=== PATIENT | female | born 1990 | race Caucasian/White ===

== ENCOUNTER 2018-09-01 17:16 | Inpatient (IN) | payer BC, OTHER ==
[2018-09-01 18:21] VITALS: BMI 27.2
[2018-09-01] MEDS: Betamet Acet/Betamet Na Ph 30 MG/5 ML VIAL ONE (18:23)
[2018-09-02] MEDS: Betamet Acet/Betamet Na Ph 30 MG/5 ML VIAL ONE (06:24)
[2018-09-02 15:08] LABS: Hemoglobin 12.1 g/dL (12.0-16.0); Mean Corpuscular Hemoglobin 33.3 pg (27.0-31.0); Mean Corpuscular Volume 98.1 fL (78.0-98.0); Mean Platelet Volume 7.4 fL (7.4-10.4); Platelet Count 244 thou/uL (130-400); Red Blood Cell (RBC) Count 3.62 mill/uL (4.20-5.40); White Blood Cell (WBC) Count 17.6 thou/uL (4.8-10.8)
[2018-09-02 15:50] LABS: HBSAg Index 0.27 S/CO (0-0.99); Hep B Surf Ag Non-Reactive S/CO (NonReactive)
[2018-09-02 15:55] LABS: Syphilis Antibody Nonreactive (Nonreactive); Syphilis Antibody Index 0.04 S/CO (<1.00 Non-Reactive)
[2018-09-02] MEDS ORDERED: MORPHINE 5 MG/10 ML PF VIAL ONE (16:15)
[2018-09-02] MEDS ORDERED: Metoclopramide HCl 10 MG/2 ML VIAL ONE (16:16)
[2018-09-02] MEDS ORDERED: Oxytocin 10 UNITS/ML VIAL ONE (16:16)
[2018-09-02] MEDS ORDERED: Ondansetron PF 4 MG/2 ML Vial ONE (16:16)
[2018-09-02] MEDS ORDERED: PHENYLEPHRINE-NS 100 MCG/ML 10 ML SYRINGE ONE (16:22)
[2018-09-02] MEDS ORDERED: ePHEDrine/0.9% NaCl/PF SYRINGE 50 mg/10 ml ONE (16:22)
[2018-09-02] MEDS ORDERED: Bicitra 30 ML UDCUP ONE (16:23)
[2018-09-02] MEDS ORDERED: Ondansetron HCl/PF 4 MG/2 ML Vial IVP PRN (16:48)
[2018-09-02] MEDS ORDERED: Naloxone HCl 0.4 mg/ml Vial IV PRN (16:48)
[2018-09-02] MEDS ORDERED: Naloxone HCl 0.4 mg/ml Vial IVP PRN ×2 (16:48)
[2018-09-02] MEDS ORDERED: diphenhydrAMINE 50 MG/ML VIAL IVP PRN (16:48)
[2018-09-02] MEDS ORDERED: Promethazine HCl 25 MG SUPP PR PRN (16:48)
[2018-09-02] MEDS ORDERED: Eucerin (Mineral Oil/Petrolatum,White) 30 gm Jar TOP PRN (16:48)
[2018-09-02] MEDS ORDERED: Meperidine HCl/PF 25 MG/ML VIAL SLOW IVP PRN (16:48)
[2018-09-02] MEDS ORDERED: HYDROmorphone 2 MG/ML VIAL SLOW IVP PRN (16:48)
[2018-09-02] MEDS ORDERED: L&D-Morphine 4 MG/ML VIAL SLOW IVP PRN (16:48)
[2018-09-02] MEDS ORDERED: Ondansetron PF 4 MG/2 ML Vial IVP PRN (16:48)
[2018-09-02] MEDS ORDERED: Promethazine HCl 25 MG/ML VIAL IM PRN (16:48)
[2018-09-02] MEDS ORDERED: Ketorolac Tromethamine 30 MG/ML VIAL IVP SCH (17:00)
[2018-09-02] MEDS ORDERED: Communication Order-Pharmacy FS SCH (17:00)
[2018-09-02] MEDS ORDERED: Ketamine 50 MG/ML (10ML VIAL) ONE (17:23)
[2018-09-02 17:40] LABS: Actual Bicarbonate (HCO3a) 21.6 mEq/L (22-28); Base Excess (BEa) -4.5 mEq/L (-2.0 to +3.0)
[2018-09-02] MEDS ORDERED: HYDROcodone/Acetaminophen 5/325 mg Tablet PO PRN (19:55)
[2018-09-02] MEDS ORDERED: Lanolin Ointment 7 GM TUBE TOP PRN (19:55)
[2018-09-02] MEDS ORDERED: diphenhydrAMINE 25 MG CAP PO PRN (19:55)
[2018-09-02] MEDS ORDERED: Acetaminophen 325 MG TAB PO PRN (19:55)
[2018-09-02] MEDS ORDERED: NS / Oxytocin 40 units/1000ml 1,000 ML IV SCH (22:00)
--- NOTE | 2018-09-03 00:36 | OP ---
DATE OF PROCEDURE: 09/02/2018 RESIDENT SURGEON: Deann Lau DO WELLNESS GUIDE SURGEON: Ava Zavala MD PREOPERATIVE DIAGNOSES: 1. Intrauterine at 36 and 6/7th weeks. 2. Jarett breech presentation. 3. Small for gestational age (SGA). 4. Grade 3 placenta. 5. Oligohydramnios. POSTOPERATIVE DIAGNOSES: 1. Intrauterine at 36 and 6/7th weeks. 2. Jarett breech presentation. 3. Small for gestational age (SGA). 4. Grade 3 placenta. 5. Oligohydramnios. PROCEDURE PERFORMED: Primary low transverse section. ANESTHESIA: Spinal catheterization. FINDINGS: 1. Persistent jarett breech presentation. 2. SGA with non-reassuring testing. 3. Grade 3 placenta with oligohydramnios (PIERO less than 5 cm). 4. A viable male infant, 5 pounds 5 ounces, Apgars 5 and 9. 5. Nuchal cord x3. 6. Normal uterus, tubes, and ovaries. COMPLICATIONS: None. SPECIMENS REMOVED: 1. Cord blood gas. 2. Placenta to Pathology, secondary to oligohydramnios and grade 3 placenta. BLOOD LOSS: Approximately 400 mL. HISTORY AND INDICATIONS: Ms. Jimbo Rodas is a pleasant 28-year-old white female, 1, para 0, who is followed in my clinic for obstetric care. Jimbo's has been complicated by persistent small for gestational age (SGA) with borderline IUGR. In addition, the baby has been persistent jarett breech presentation. Because of the growth issues, the patient has been in weekly testing. The fluid began to drop last week with developing grade 3 placenta. She returned to the office yesterday morning for NST and biophysical profile. The NST was reactive and reassuring; however, the patient's PIERO had dropped to less than 5 cm with a grade 3 placenta and oligohydramnios. There was no interval growth in the last week. Because the patient was , she was sent to Labor and Delivery for steroids to enhance lung maturity and scheduled this evening. The patient has been thoroughly counseled and consented and surgical disclosures been signed and placed in the chart. We will proceed with primary delivery as outlined. DESCRIPTION OF PROCEDURE: After thorough consent and counseling, Ms. Jimbo Rodas was taken to the operating room and adequate level of anesthesia was obtained via spinal catheterization. The patient was prepped and draped in usual sterile fashion for abdominal surgery. A Cornelius was placed in the bladder, which was drained of clear urine. Attention was then turned to performing the primary low-transverse section. A Pfannenstiel incision was made and carried sharply to the fascia, which was also sharply incised. The midline was identified. The rectus muscles were retracted laterally. The abdominal peritoneal cavity was entered with the usual safeguard carried out. A retractor was placed and a bladder flap was created on the vesicouterine peritoneum. A low transverse incision was made on the well-developed lower uterine segment. Upon entering the amniotic sac, a scant amount of clear amniotic fluid was visualized. The infant was noted to be jarett breech type presentation. The breech was carefully delivered in an atraumatic fashion with some difficulty secondary to pelvic configuration and tightness of the rectus muscles. The breech was delivered and using a Mauriceau maneuver, shoulders and after coming head were also carefully delivered in atraumatic fashion. Nuchal cord x3 was reduced. The cord was doubly clamped and cut. The was handed to the Neonatology Team in attendance for the delivery. Initially, the baby showed some respiratory depression, which was addressed with conservative measures. The was a viable male weighing 5 pounds 5 ounces with Apgars of 5 and 9 obtained at 1 and 5 minutes respectively. Cord blood gas was obtained. The placenta was manually removed from the uterus. The uterus was exteriorized and good tone was noted. The uterine cavity was cleared of any remaining clot and fluid. The low-transverse incision was closed with a running locking ligature of #1 chromic. A second imbricating layer was placed to facilitate strength and hemostasis. The vesicouterine peritoneum was reapproximated to the lower segment with a running ligature of 2-0 Monocryl suture. The posterior cul-de-sac and gutters were cleared of clot and fluid. As noted above, the pelvic configuration was android with an extremely prominent sacrum and the AP diameter was extremely contracted. The diagnosis of cephalopelvic disproportion (CPD) was given. Seprafilm was applied to the low-transverse incision. The uterus was returned to the abdomen. Uterus, fallopian tubes, and ovaries were normal. The incision was carefully inspected and noted to be hemostatic. Peritoneum was closed with a running ligature of 2-0 Vicryl suture. Lap, sponge, and needle counts were correct. The rectus muscles were reapproximated in midline with interrupted ligatures of 2-0 plain. The skin was closed with subcuticular stitch of 4-0 Monocryl and dressed with Dermabond. Pressure dressing and ice packs were subsequently placed. The patient was taken to recovery room in good condition. Baby was doing well postoperatively in the nursery. Immediately following surgery, the patient and family were aware of the surgical procedure and operative findings. Questions were answered to their satisfaction. Jimbo and her were very appreciative of the care rendered here at [facility] this evening. Job ID: [id number]
[2018-09-03] MEDS: Ketorolac Tromethamine 30 MG/ML VIAL IVP PRN ×2 (02:27→08:40)
[2018-09-03] MEDS: Lactated Ringer's 1,000 ML IV SCH ×3 (02:29→12:43)
[2018-09-03] MEDS: Docusate Calcium (SURFAK) 240 MG CAP PO SCH ×3 (02:30→21:50)
[2018-09-03 05:31] LABS: Hemoglobin 10.2 g/dL (12.0-16.0); Mean Corpuscular HGB CONC 33.6 g/dL (32.0-36.0); Mean Corpuscular Hemoglobin 33.6 pg (27.0-31.0); Mean Platelet Volume 7.6 fL (7.4-10.4); Platelet Count 197 thou/uL (130-400); RBC Distribution Width 13.1 % (11.5-14.5); Red Blood Cell (RBC) Count 3.03 mill/uL (4.20-5.40); White Blood Cell (WBC) Count 19.8 thou/uL (4.8-10.8)
[2018-09-03] MEDS: Ferrous Sulfate 325 MG TAB PO SCH ×2 (07:49→17:12)
[2018-09-03] MEDS: Prenatal Vitamin 1 TAB PO SCH (08:40)
[2018-09-03] MEDS: Simethicone Chewable 80 MG TAB PO PRN ×2 (08:40→17:41)
[2018-09-03] MEDS ORDERED: Adacel (T-DAP) 0.5 ML SYRINGE IM ONE (09:00)
[2018-09-03] MEDS: HYDROcodone/Acetaminophen 5/325 mg Tablet PO PRN ×3 (11:45→21:49)
[2018-09-03] MEDS: Ibuprofen 800 MG TAB PO SCH ×2 (14:54→21:50)
[2018-09-04] MEDS: Lactated Ringer's 1,000 ML IV SCH ×3 (01:43→15:28)
[2018-09-04] MEDS: HYDROcodone/Acetaminophen 5/325 mg Tablet PO PRN ×4 (04:29→18:27)
[2018-09-04] MEDS: Simethicone Chewable 80 MG TAB PO PRN ×3 (04:29→18:31)
[2018-09-04] MEDS: Ibuprofen 800 MG TAB PO SCH ×3 (06:24→21:41)
[2018-09-04] MEDS: Ferrous Sulfate 325 MG TAB PO SCH ×2 (09:44→18:26)
[2018-09-04] MEDS: Prenatal Vitamin 1 TAB PO SCH (09:45)
[2018-09-04] MEDS: Docusate Calcium (SURFAK) 240 MG CAP PO SCH ×2 (09:45→21:41)
[2018-09-05] MEDS: Lactated Ringer's 1,000 ML IV SCH ×3 (00:01→13:22)
[2018-09-05] MEDS: HYDROcodone/Acetaminophen 5/325 mg Tablet PO PRN ×3 (00:50→11:23)
[2018-09-05] MEDS: Simethicone Chewable 80 MG TAB PO PRN (06:14)
[2018-09-05] MEDS: Ferrous Sulfate 325 MG TAB PO SCH (08:53)
[2018-09-05] MEDS: Prenatal Vitamin 1 TAB PO SCH (09:30)
[2018-09-05] MEDS: Docusate Calcium (SURFAK) 240 MG CAP PO SCH (09:30)
[2018-09-05 12:15] VITALS: BP 126/60; TEMP 97.9
[2018-09-05] MEDS: Ibuprofen 800 MG TAB PO SCH (13:35)
== END 2018-09-05 16:10 | disposition home or self-care (01) | DRG 786 ==
LOC: L&D/OP 17:16 → L&D 17:35 → 3SW 09-02 20:44
PROVIDERS: ADMIT Obstetrics & Gynecology; ATTEND Obstetrics & Gynecology
PROC: 10D00Z1 Extraction of Products of Conception, Low, Open Approach (ICD-10-PCS; principal; 2018-09-01)
DX: O41.03X0 Oligohydramnios, third trimester, not applicable or unspecified (principal); O60.14X0 Preterm labor third trimester with preterm delivery third trimester, not applicable or unspecified; Z3A.36 36 weeks gestation of pregnancy; Z37.0 Single live birth; O32.1XX0 Maternal care for breech presentation, not applicable or unspecified; O69.81X0 Labor and delivery complicated by cord around neck, without compression, not applicable or unspecified
CPT/HCPCS: 36415; 51702; 82805; 85027; 86780; 86850; 86900; 86901; 87340; 88307; J0702; J1885; J2270; J2405; J2590; J2765

== ENCOUNTER 2020-04-30 03:49 | Inpatient (IN) | payer OTHER ==
[2020-04-30 04:30] VITALS: BMI 24.2
[2020-04-30] MEDS ORDERED: hydrALAZINE 20 MG/ML VIAL SLOW IVP PRN ×3 (04:32→07:51)
[2020-04-30] MEDS ORDERED: Magnesium Sulfate 20 gm/500 ml 20 GM/500 ML BAG ONE (04:37)
[2020-04-30] MEDS ORDERED: Ondansetron PF 4 MG/2 ML Vial IVP PRN (04:40)
[2020-04-30] MEDS ORDERED: Calcium Gluc 4.6 MEQ/10 ML (100 MG/ML) SLOW IVP PRN (04:40)
[2020-04-30] MEDS ORDERED: Butorphanol Tartrate 1 MG/ML VIAL SLOW IVP PRN (04:40)
[2020-04-30] MEDS ORDERED: Promethazine HCl 25 MG/ML VIAL IM PRN (04:40)
[2020-04-30] MEDS ORDERED: NS / Oxytocin 40 units/1000ml 1,000 ML IV PRN (04:40)
[2020-04-30] MEDS ORDERED: Lidocaine 1% (PF) 30 ML VIAL SC PRN (04:40)
[2020-04-30] MEDS ORDERED: Lactated Ringer's 1,000 ML IV SCH ×2 (04:45)
[2020-04-30] MEDS ORDERED: Magnesium Sulfate 20 GM/WATER 500 ML BAG IVPB SCH (04:45)
[2020-04-30] MEDS ORDERED: Betamet Acet/Betamet Na Ph 30 MG/5 ML VIAL ONE (04:46)
--- NOTE | 2020-04-30 04:51 | PDOC.LDHP ---
Labor and Delivery H&P Chief complaint: contractions HPI: 29 yo WF c/o UCs x last 2-3 days. Denies SROM or LOF. Current gestational age (weeks): 25 Due date: 08/12/20 Dating criteria: last menstrual period Grav: 2 Para: 1 OB History Details: PNC with Dr. Lugo. H/o C/S at 36 weeks for breech. Current complications: none Abnormal US findings: No Past Medical History: none Current medications: pre- vitamins Previous surgical history: other (C/S as above) Allergies/Adverse Reactions: Allergies Allergy/AdvReac Type Severity Reaction Status Date / Time No Known Allergies Allergy Verified 09/03/18 06:08 Social history: none - Physical Exam Vital signs reviewed and normal: yes General: breathing through contractions Heart: RRR Lungs: CTAB Abdomen: gravid Extremeties: no edema FHT: variable decelerations [place] contractions every: q 3-4 mins - Vaginal Exam cm dilated: 1 Effacement: 75% Station: -1 - OB Labs GBS: unknown - Assessment L&D Assessment: labor - Plan Plan: admit to L&D, informed consent obtained, other (Start Mg and BMX. Dr. Lugo notified. Observe carefully.)
[2020-04-30] MEDS ORDERED: Magnesium Sulfate 20 gm/500 ml 20 GM/500 ML BAG IVPB SCH (05:00)
[2020-04-30] MEDS ORDERED: Penicillin G Potassium 5 MILL.UNITS in Sodium Chloride 0.9% 100 ML IVPB SCH (05:00)
[2020-04-30] MEDS ORDERED: Betamet Acet/Betamet Na Ph 30 MG/5 ML VIAL IM SCH (05:00)
--- NOTE | 2020-04-30 05:45 | PDOC.EVN ---
Event Note - Event Note Event Note: Prelim USG shows; vtx, EFW= 597 gms and minimal AF. BMX given Mg infusing. GBS obtained and Pen G started. Dr. Lugo notified.
[2020-04-30 06:02] LABS: Hemoglobin 12.2 g/dL (12.0-16.0); Mean Corpuscular HGB CONC 35.2 g/dL (32.0-36.0); Mean Corpuscular Hemoglobin 33.4 pg (27.0-31.0); Mean Corpuscular Volume 94.8 fL (78.0-98.0); Mean Platelet Volume 8.1 fL (7.4-10.4); Platelet Count 298 thou/uL (130-400); RBC Distribution Width 12.4 % (11.5-14.5); Red Blood Cell (RBC) Count 3.67 mill/uL (4.20-5.40)
--- NOTE | 2020-04-30 06:09 | PDOC.EVN ---
Event Note - Event Note Event Note: Continues to c/o painful ctx. FHTs are stable. Ucs q 3 mins. Unable to transfer at this time. D/w Drs. Ugalde and Brittney. Observe closely. OK for TOLAC per Dr. Lugo.
[2020-04-30 06:43] LABS: HBSAg Index 0.16 S/CO (0-0.99); Hep B Surf Ag Non-Reactive S/CO (NonReactive); Syphilis Antibody Nonreactive (Nonreactive); Syphilis Antibody Index 0.04 S/CO (<1.00 Non-Reactive)
[2020-04-30] MEDS ORDERED: NS / Oxytocin 40 units/1000ml 1,000 ML ONE (07:12)
[2020-04-30] MEDS ORDERED: Lidocaine 1% (PF) 30 ML VIAL ONE (07:12)
[2020-04-30] MEDS ORDERED: Oxytocin 10 UNITS/ML VIAL ONE (07:13)
[2020-04-30] MEDS ORDERED: Methylergonovine 0.2 MG/ML VIAL ONE (07:28)
--- NOTE | 2020-04-30 07:38 | ULT ---
PRELIMINARY REPORT/[facility]/EMERGENCY AFTER HOURS PROCEDURE: EXAM: US Obstetrical, Complete >14 weeks. CLINICAL HISTORY: HX: CONTRACTION AT 25WKS (BY EARLY SCAN). EVAL EFW,PLACENTA, PRESENTATION. TECHNIQUE: Transabdominal imaging of the maternal pelvis and a > 14 week gestation with image documen tation. COMPARISON: None provided. FINDINGS: FETUS: There is a single living intrauterine gestation, estimated gestational age 23 weeks 1 day POSITION: position is vertex. HEART RATE: The heart rate is 144 beats per minute. BIOMETRICS: Based on composite biometry, the estimated gestational age by ultrasound is 21 day corresponding to a due date of 08/26/2020. The weight is 597 g. ANATOMIC SURVEY: Cystic structure is noted just above the diaphragm region. PLACENTA: The placenta is located posterior. No sonographic evidence for previa or abruption. AMNIOTIC FLUID: No significant amniotic fluid is identified. CERVIX: Poorly visualized. IMPRESSION: Single viable intrauterine . Oligohydramnios is noted. A cystic structure is n oted just above the diaphragm, possibly within the lung. Dr. Hernandez was in attendance during this study. ELECTRONICALLY SIGNED BY: Rashad Ross MD Apr 30, 2020 6:00:10 AM CDT FINAL REPORT OBSTETRIC SONOGRAM LIMITED: DATE: 04/30/2020. TIME: Performed on emergency basis at 0517 hours. HISTORY: labor. FINDINGS: Single intrauterine gestation in cephalic presentation. Severe oligohydramnios. Findings agree with the preliminary report by Dr. Ross from [facility]. 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 Transcribed Date/Time: 04/30/2020 7:45 AM
--- NOTE | 2020-04-30 07:47 | PDOC.OPDEL ---
OB Operative/Delivery Note Delivery Dr/Surgeon: David Assist: Osorio Pre-Delivery Diagnosis: other (PTL) Procedure/Post Delivery Dx: other () Anesthesia: local - Additional Findings/Plan Placenta delivered: spontaneous Repaired Obstetrical Laceration: episiotomy (elective for PT delivery) Estimated blood loss: 300 cc Compilations/Other Findings: Rapid progress with of viable male . Wt and Apgars pending. NICU Team and Dr. Ugalde present at delivery. Baby to NICU. 2* MLE repaired in layers. To recover in L&D. Post delivery plan: routine recovery
[2020-04-30] MEDS ORDERED: HYDROcodone/Acetaminophen 5/325 mg Tablet PO PRN ×2 (07:51)
[2020-04-30] MEDS ORDERED: Zolpidem Tartrate 5 MG TAB PO PRN (07:51)
[2020-04-30] MEDS ORDERED: Adacel (T-DAP) 0.5 ML SYRINGE IM ONE (07:51)
[2020-04-30] MEDS ORDERED: Misoprostol 200 MCG TAB VAG PRN (07:51)
[2020-04-30] MEDS ORDERED: Milk Of Magnesia 30 ML UDCUP PO PRN (07:51)
[2020-04-30] MEDS ORDERED: Bisacodyl 10 MG SUPP PR PRN (07:51)
[2020-04-30] MEDS ORDERED: Methylergonovine 0.2 MG/ML VIAL IM PRN (07:51)
[2020-04-30] MEDS ORDERED: NS / Oxytocin 40 units/1000ml 1,000 ML IV SCH (08:00)
[2020-04-30] MEDS ORDERED: FLU VACC QS2020-21(6MOS UP)/PF 60 MCG/0.5 ML SYRINGE IM ONE (09:00)
[2020-04-30] MEDS ORDERED: Penicillin G 2.5 MILL.units 2.5 MILL.UNITS in Premix Bag 1 BAG IVPB SCH (09:00)
[2020-04-30 10:17] LABS: Actual Bicarbonate (HCO3a) 19.4 mEq/L (22-28); Analyzer IN Cardio OR; Base Excess (BEa) -3.2 mEq/L (-2.0 to +3.0)
[2020-04-30 11:10] LABS: SARS-CoV-2 MS2 Positive; SARS-CoV-2 N Gene Negative; SARS-CoV-2 S Gene Negative; SARS-CoV-2 by NAA Not Detected (NotDetected); SARS-CoV-2 orf1ab Negative
[2020-04-30 11:12] LABS: SARS-CoV-2 NAA Rapid Test Not Detected (NotDetected)
[2020-04-30] MEDS: Docusate Calcium (SURFAK) 240 MG CAP PO SCH ×2 (11:50→21:26)
[2020-04-30] MEDS: Ferrous Sulfate 325 MG TAB PO SCH (11:50)
[2020-04-30] MEDS: Ibuprofen 800 MG TAB PO SCH ×2 (13:56→21:26)
[2020-05-01] MEDS: Ibuprofen 800 MG TAB PO SCH (05:57)
[2020-05-01] MEDS ORDERED: Lanolin Ointment 7 GM TUBE TOP PRN (06:12)
[2020-05-01 08:10] VITALS: BP 108/52; TEMP 98.3
[2020-05-01] MEDS: Docusate Calcium (SURFAK) 240 MG CAP PO SCH (08:41)
[2020-05-01] MEDS: Ferrous Sulfate 325 MG TAB PO SCH (08:42)
== END 2020-05-01 09:30 | disposition home or self-care (01) | DRG 805 ==
LOC: L&D/OP 03:49 → L&D 05:18 → 3SE 11:36
PROVIDERS: ADMIT Obstetrics & Gynecology; ATTEND Obstetrics & Gynecology
PROC: 10E0XZZ Delivery of Products of Conception, External Approach (ICD-10-PCS; principal; 2020-04-30)
PROC: 0KQM0ZZ Repair Perineum Muscle, Open Approach (ICD-10-PCS; 2020-04-30)
PROC: 0W8NXZZ Division of Female Perineum, External Approach (ICD-10-PCS; 2020-04-30)
DX: O76 Abnormality in fetal heart rate and rhythm complicating labor and delivery (principal); O60.12X0 Preterm labor second trimester with preterm delivery second trimester, not applicable or unspecified; Z37.0 Single live birth; Z20.828 Contact with and (suspected) exposure to other viral communicable diseases; O70.1 Second degree perineal laceration during delivery; Z3A.25 25 weeks gestation of pregnancy
CPT/HCPCS: 36415; 51702; 76815; 82805; 85027; 86780; 86850; 86900; 86901; 87070; 87081; 87205; 87340; 87635; 88305; 99285; J0595; J0702; J2001; J2210; J2540; J3475; J3490; U0002; U0003